=== PATIENT | female | born 1975 | race Caucasian/White ===

== ENCOUNTER → 2016-12-13 | Outpatient (CLI) | payer BC ==
[~2016-12-13] MED LIST: B-CO1CAP17 PO; IBUP600T44 PO; LISI-789 PO; LORA10TA5 PO; MULT-506 PO; PRAV40TA PO; PRENTAB69 PO; SNQ/25 PO; VITACAP26 PO
--- NOTE | 2016-12-14 13:33 | MAMMOGRAPHY REPORT ---
BILATERAL DIGITAL SCREENING MAMMOGRAM TOMOSYNTHESIS WITH CAD: 12/13/2016 CLINICAL HISTORY: Routine screening. Patient has no complaints. TECHNIQUE: Breast tomosynthesis in addition to standard 2D mammography was performed. Current study was also evaluated with a Computer Aided Detection (CAD) system. COMPARISON: Comparison is made to exams dated: 12/13/2015 mammogram, 11/23/2014 mammogram, 11/13/2014 m ammogram, 11/30/2014 ultrasound biopsy, 11/23/2014 ultrasound, and 11/30/2014 mammogram - [facility]. BREAST COMPOSITION: The tissue of both breasts is heterogeneously dense, which may obscure small ma sses. FINDINGS: A square shaped mole marker overlies the upper outer quadrant of the left breast. Groupin gs of round and punctate microcalcifications in the anterior left breast are stable in number and co nfiguration dating back to 11/13/2014, most likely benign fibrocystic change. There are other scatte red punctate microcalcifications throughout the remainder of each breast. There is a stable ribbon shaped metallic biopsy marker in the 12:30 posterior right breast, at the site of prior benign biops y. The nodular asymmetry seen on the CC view adjacent to the biopsy marker is less prominent compar ing to the 2016 mammogram, and 06/10/2015 mammogram. No new suspicious mass, architectural distorti on or cluster of microcalcifications is seen bilaterally. IMPRESSION: ACR BI-RADS CATEGORY 1: NEGATIVE Stable bilateral mammograms, without mammographic evidence of malignancy. A 1 year screening mammogr am is recommended. The patient will receive written notification of the results. Approximately 10% of breast cancers are not detected with mammography. A negative mammographic repor t should not delay biopsy if a clinically suggestive mass is present. Paula Resendiz M.D. ay/:12/13/2016 17:26:37 Repair Clerk: Nancy ISAAC(R)(M), [facility] letter sent: Normal 1/2 BI-RADS Code: ACR BI-RADS Category 1: Negative
== END | disposition home or self-care (01) ==
LOC: C.MAMM 10:36
PROVIDERS: ATTEND Obstetrics & Gynecology
DX: Z12.31 Encounter for screening mammogram for malignant neoplasm of breast (principal)

== ENCOUNTER 2017-02-14 14:44 | Emergency (ER) | payer BC ==
[~2017-02-14] VITALS: Ht 165.1 cm; Wt 69.0 kg
[~2017-02-14 14:44] MED LIST changes: -B-CO1CAP17 PO; -LISI-789 PO; -MULT-506 PO; -PRAV40TA PO; -SNQ/25 PO; -VITACAP26 PO
[2017-02-14 14:50] VITALS: TEMP 36.7; Ht 165.1 cm; Wt 69.0 kg
[2017-02-14] MEDS ORDERED: SODIUM CHLORIDE 0.9% 1000ML 1,000 ML IV STA (15:16)
[2017-02-14] MEDS ORDERED: KETOROLAC TROMETHAMINE 30 MG/ML VIAL IV STA (15:16)
[2017-02-14] MEDS ORDERED: ONDANSETRON INJ 2 MG/ML 2 ML VIAL IV STA (15:16)
[2017-02-14 15:27] LABS: BASO % 0.2 %; BASO ABS # 0.02 K/uL (0-0.2); COMPLETE YES; HEMATOCRIT 39.5 % (37-47); IG% 0.2 %; LYMPH % 20.6 %; LYMPH ABS # 1.86 K/uL (1.2-3.4); MEAN CELL VOLUME 89.6 fL (80-100); MEAN CORPUSCULAR HEMOGLOBIN 31.1 pg (25-34); MEAN CORPUSCULAR HGB CONC 34.7 g/dl (32-36); MONO % 7.3 %; NEUT % 70.7 %; PLATELET COUNT 227 K/uL (130-400); RED BLOOD COUNT 4.41 M/uL (4.2-5.4); WHITE BLOOD COUNT 9.04 K/uL (4.8-10.8)
[2017-02-14 15:31] LABS: URINE APPEARANCE CLEAR (CLEAR); URINE BILIRUBIN NEG (NEG); URINE COLOR DK YELLOW; URINE EPITHELIAL CELL AUTO 20-30 /lpf (0-5); URINE NITRITE NEG (NEG); URINE SPECIFIC GRAVITY 1.025 (1.000-1.030); UROBILINOGEN NEG (NEG)
[2017-02-14] MEDS ORDERED: PRAV40TA PO (15:35)
[2017-02-14] MEDS ORDERED: SNQ/25 PO (15:35)
[2017-02-14] MEDS ORDERED: B-CO1CAP17 PO (15:35)
[2017-02-14] MEDS ORDERED: VITACAP26 PO (15:35)
[2017-02-14] MEDS ORDERED: MULT-506 PO (15:35)
[2017-02-14] MEDS ORDERED: LISI-789 PO (15:35)
[2017-02-14 15:36] LABS: MANUAL MICROSCOPIC REQUIRED? NO; REVIEW REQ? YES
[2017-02-14 15:38] LABS: ALT/SGPT 45 U/L (12-78); AST/SGOT 27 U/L (15-37); BLOOD UREA NITROGEN 14 mg/dl (7-18); CARBON DIOXIDE 29 mmol/L (21-32); CHLORIDE 103 mmol/L (98-107); GLUCOSE 113 mg/dl (70-99); POTASSIUM 3.6 mmol/L (3.5-5.1); SODIUM 139 mmol/L (136-145)
[2017-02-14 15:41] LABS: ALKALINE PHOSPHATASE 62 U/L (45-117)
[2017-02-14 15:49] LABS: ZZUR CULT IF INDIC CLEAN CATCH YES
--- NOTE | 2017-02-14 15:52 | DIAGNOSTIC IMAGING REPORT ---
CT SCAN OF THE ABDOMEN AND PELVIS WITHOUT IV CONTRAST CLINICAL HISTORY: Right flank pain. COMPARISON STUDY: No priors. TECHNIQUE: CT scan of the abdomen and pelvis is performed from the lung bases to the proximal femora. Images are reviewed in the axial, sagittal, and coronal planes. IV contrast was not administered for this examination as per the referring clinician. Automated dose control exposure was utilized. CT DOSE: 841.45 mGy.cm FINDINGS: Lung bases: The heart is normal in size and without pericardial effusion. The lung bases are clear. Liver: The unenhanced liver is enlarged, measuring 19 cm in length. The liver is normal in contour and attenuation. There is no intrahepatic biliary ductal dilatation. Gallbladder: There are small calcified gallstones. There is no CT evidence of acute cholecystitis. Spleen: Normal in size and attenuation. Pancreas: Unremarkable. Adrenal glands: Unremarkable. Kidneys: The unenhanced kidneys are normal in size. There is mild fullness of the right renal collecting system. No hydronephrosis is seen. There are least 2 small nonobstructing calculi present in both kidneys measuring up to 2 mm. No ureteral stone is clearly seen. There is no evidence of contour deforming renal mass lesion. Abdominal vasculature: The abdominal aorta is normal in course and caliber. Bowel: The small bowel and colon are normal in course and caliber. There are scattered colonic diverticula without CT evidence of acute diverticulitis. Fecal retention is noted in the right colon. The appendix is well-visualized and normal. Peritoneum: There is no intraperitoneal free air or abdominal ascites. There is a small fat-containing umbilical hernia. A naval piercing is noted. Lymphadenopathy: None. Pelvic viscera: The bladder is largely decompressed and grossly unremarkable. The uterus is normal in appearance noting an intrauterine device in place. There are small bilateral ovarian follicles. Small calcification in the pelvis likely represent phleboliths. Skeletal structures: No lytic or blastic lesions are seen. Sclerotic change is noted in the sacroiliac joints. IMPRESSION: 1. There are tiny bilateral nonobstructing renal calculi. 2. There is minimal fullness of the right renal collecting system without evidence of hydronephrosis. No obstructing ureteral stone is clearly identified. This may represent the sequelae of a recently passed kidney stone, or could also be seen in the setting of ascending urinary tract infection. Correlation with clinical findings and urinalysis will be required. 3. Mild hepatomegaly. 4. Cholelithiasis. 5. There is fecal retention noted in the right colon. Electronically signed by: Sukhdeep Leigh M.D. 02/14/2017 3:50 PM Dictated Date/Time: 02/14/2017 3:42 PM
[2017-02-14 17:08] VITALS: BP 115/79; PULSE 63; O2SAT 100
--- NOTE | 2017-02-14 22:27 | EMERGENCY ROOM VISIT NOTE ---
History Report prepared by Kiko: Beverly Brown Under the Supervision of: Dr. Steven Yanez D.O. First contact with patient: 14:52 Chief Complaint: BACK PAIN Stated Complaint: BACK PAIN, NAUSEA, HX OF KIDNEY STONES History of Present Illness The patient is a 41 year old female who presents to the Emergency Room with complaints of constant right sided back pain beginning 5 hours ago. The patient states that she has a history of kidney stones and is concerned that she has one today. She complains of nausea and notes that her symptoms today are similar to her previous kidney stones. She denies any urinary symptoms, abdominal pain, numbness in the legs, weakness in the legs, cough, runny nose, changes in bowel movements, and sore throat. The patient states that her pain is not worsened with movement or breathing. She has no chest pain. Source of History: patient Onset: 5 hours ago Position: back Timing: constant Modifying Factors (Worsening): other (none) Associated Symptoms: + nausea, No abdominal pain, No cough, No numbness, No sorethroat, No urinary symptoms, No weakness Note: She denies any runny nose and changes in bowel movements. Review of Systems See HPI for pertinent positives & negatives. A total of 10 systems reviewed and were otherwise negative. Past Medical & Surgical Medical Problems: (1) Depression (2) Kidney stone Family History Diabetes mellitus FH: heart disease Hypertension Social History Smoking Status: Never Smoker Smokeless Tobacco Use: No Alcohol Use: occasionally Marital Status: in relationship Housing Status: lives with family Occupation Status: employed Current/Historical Medications Scheduled Doxepin (Sinequan), 25 MG PO QPM Lisinopril (Zestril), 2.5 MG PO DAILY Multivitamin (Multivitamin), 1 TAB PO DAILY Pravastatin Sodium (Pravachol), 40 MG PO QPM Vitamin B Cmplx/Vitc/Folic Ac (Nephrocaps), 1 CAP PO DAILY Vitamins C & E (Vitamin C), 1 TAB PO DAILY Allergies Coded Allergies: Doxycycline (Verified Allergy, Unknown, HIVES, 05/13/12) Physical Exam Vital Signs Date Time Temp Pulse Resp B/P Pulse Ox O2 Delivery O2 Flow Rate FiO2 02/14/17 17:08 63 18 115/79 100 02/14/17 15:44 70 16 126/73 97 Room Air 02/14/17 14:50 36.7 98 18 141/80 99 Room Air Physical Exam GENERAL: sitting up in bed, holding right flank, disheveled, alert, well nourished, no distress, non-toxic EYE EXAM: normal conjunctiva OROPHARYNX: no exudate, no erythema, lips, buccal mucosa, and tongue normal and mucous membranes are moist NECK: supple, no nuchal rigidity, no adenopathy, non-tender LUNGS: Clear to auscultation. Normal chest wall mechanics HEART: no murmurs, S1 normal and S2 normal ABDOMEN: abdomen soft, non-tender, normo-active bowel sounds, no masses, no rebound or guarding. BACK: Back is symmetrical on inspection and there is no deformity, no midline tenderness, no CVA tenderness. SKIN: no rashes and no bruising UPPER EXTREMITIES: upper extremities are grossly normal. LOWER EXTREMITIES: No pitting edema. Flexion extension of knee, hip, ankle and EHL 5/5, gross sensation intact, able to ambulate without difficulty. NEURO EXAM: Normal sensorium, cranial nerves are grossly intact 2 through 12. No gross weakness of arms, no gross weakness of legs. Medical Decision & Procedures ER Provider Diagnostic Interpretation: Radiology results as stated below per my review and the radiologist's interpretation: CT SCAN OF THE ABDOMEN AND PELVIS WITHOUT IV CONTRAST FINDINGS: Lung bases: The heart is normal in size and without pericardial effusion. The lung bases are clear. Liver: The unenhanced liver is enlarged, measuring 19 cm in length. The liver is normal in contour and attenuation. There is no intrahepatic biliary ductal dilatation. Gallbladder: There are small calcified gallstones. There is no CT evidence of acute cholecystitis. Spleen: Normal in size and attenuation. Pancreas: Unremarkable. Adrenal glands: Unremarkable. Kidneys: The unenhanced kidneys are normal in size. There is mild fullness of the right renal collecting system. No hydronephrosis is seen. There are least 2 small nonobstructing calculi present in both kidneys measuring up to 2 mm. No ureteral stone is clearly seen. There is no evidence of contour deforming renal mass lesion. Abdominal vasculature: The abdominal aorta is normal in course and caliber. Bowel: The small bowel and colon are normal in course and caliber. There are scattered colonic diverticula without CT evidence of acute diverticulitis. Fecal retention is noted in the right colon. The appendix is well-visualized and normal. Peritoneum: There is no intraperitoneal free air or abdominal ascites. There is a small fat-containing umbilical hernia. A naval piercing is noted. Lymphadenopathy: None. Pelvic viscera: The bladder is largely decompressed and grossly unremarkable. The uterus is normal in appearance noting an intrauterine device in place. There are small bilateral ovarian follicles. Small calcification in the pelvis likely represent phleboliths. Skeletal structures: No lytic or blastic lesions are seen. Sclerotic change is noted in the sacroiliac joints. IMPRESSION: 1. There are tiny bilateral nonobstructing renal calculi. 2. There is minimal fullness of the right renal collecting system without evidence of hydronephrosis. No obstructing ureteral stone is clearly identified. This may represent the sequelae of a recently passed kidney stone, or could also be seen in the setting of ascending urinary tract infection. Correlation with clinical findings and urinalysis will be required. 3. Mild hepatomegaly. 4. Cholelithiasis. 5. There is fecal retention noted in the right colon. Electronically signed by: Sukhdeep Leigh M.D. 02/14/2017 3:50 PM Dictated Date/Time: 02/14/2017 3:42 PM Laboratory Results 02/14/17 14:55 Red Blood Count 4.41, Mean Corpuscular Volume 89.6, Mean Corpuscular Hemoglobin 31.1, Mean Corpuscular Hemoglobin Concent 34.7, Mean Platelet Volume 9.0, Neutrophils (%) (Auto) 70.7, Lymphocytes (%) (Auto) 20.6, Monocytes (%) (Auto) 7.3, Eosinophils (%) (Auto) 1.0, Basophils (%) (Auto) 0.2, Neutrophils # (Auto) 6.39, Lymphocytes # (Auto) 1.86, Monocytes # (Auto) 0.66, Eosinophils # (Auto) 0.09, Basophils # (Auto) 0.02 02/14/17 14:55 Test 02/14/17 14:55 02/14/17 15:20 White Blood Count 9.04 K/uL (4.8-10.8) Red Blood Count 4.41 M/uL (4.2-5.4) Hemoglobin 13.7 g/dL (12.0-16.0) Hematocrit 39.5 % (37-47) Mean Corpuscular Volume 89.6 fL (80-100) Mean Corpuscular Hemoglobin 31.1 pg (25-34) Mean Corpuscular Hemoglobin Concent 34.7 g/dl (32-36) Platelet Count 227 K/uL (130-400) Mean Platelet Volume 9.0 fL (7.4-10.4) Neutrophils (%) (Auto) 70.7 % Lymphocytes (%) (Auto) 20.6 % Monocytes (%) (Auto) 7.3 % Eosinophils (%) (Auto) 1.0 % Basophils (%) (Auto) 0.2 % Neutrophils # (Auto) 6.39 K/uL (1.4-6.5) Lymphocytes # (Auto) 1.86 K/uL (1.2-3.4) Monocytes # (Auto) 0.66 K/uL (0.11-0.59) Eosinophils # (Auto) 0.09 K/uL (0-0.5) Basophils # (Auto) 0.02 K/uL (0-0.2) RDW Standard Deviation 42.2 fL (36.4-46.3) RDW Coefficient of Variation 12.9 % (11.5-14.5) Immature Granulocyte % (Auto) 0.2 % Immature Granulocyte # (Auto) 0.02 K/uL (0.00-0.02) Anion Gap 7.0 mmol/L (3-11) Est Creatinine Clear Calc Drug Dose 89.4 ml/min Estimated GFR () 105.4 Estimated GFR (Non- 90.9 BUN/Creatinine Ratio 18.0 (10-20) Calcium Level 9.0 mg/dl (8.5-10.1) Total Bilirubin 0.4 mg/dl (0.2-1) Direct Bilirubin < 0.1 mg/dl (0-0.2) Aspartate Amino Transf (AST/SGOT) 27 U/L (15-37) Alanine Aminotransferase (ALT/SGPT) 45 U/L (12-78) Alkaline Phosphatase 62 U/L (45-117) Total Protein 7.8 gm/dl (6.4-8.2) Albumin 4.5 gm/dl (3.4-5.0) Lipase 154 U/L (73-393) Urine Color DK YELLOW Urine Appearance CLEAR (CLEAR) Urine pH 6.0 (4.5-7.5) Urine Specific [place] 1.025 (1.000-1.030) Urine Protein NEG (NEG) Urine Glucose (UA) NEG (NEG) Urine Ketones NEG (NEG) Urine Occult Blood NEG (NEG) Urine Nitrite NEG (NEG) Urine Bilirubin NEG (NEG) Urine Urobilinogen NEG (NEG) Urine Leukocyte Esterase NEG (NEG) Urine WBC (Auto) 1-5 /hpf (0-5) Urine RBC (Auto) 0-4 /hpf (0-4) Urine Hyaline Casts (Auto) 1-5 /lpf (0-5) Urine Epithelial Cells (Auto) 20-30 /lpf (0-5) Urine Bacteria (Auto) 1+ (NEG) Urine Test NEG (NEG) Laboratory results per my review. Medications Administered Medications (Trade) Dose Ordered Sig/Tierney Route Start Time Stop Time Status Last Admin Dose Admin Sodium Chloride (Nss 1000ml) 1,000 ml @ 999 mls/hr Q1H1M STAT IV 02/14/17 15:16 02/14/17 16:16 DC 02/14/17 15:27 999 MLS/HR Ketorolac Tromethamine (Toradol Inj) 30 mg NOW STAT IV 02/14/17 15:16 02/14/17 15:17 DC 02/14/17 15:27 30 MG Ondansetron HCl (Zofran Inj) 4 mg NOW STAT IV 02/14/17 15:16 02/14/17 15:18 DC 02/14/17 15:27 4 MG ED Course ED COURSE: Vital signs were reviewed and showed hypertension The patients medical record was reviewed The above diagnostic studies were performed and reviewed. ED treatments and interventions as stated above. 1452: The patient was evaluated in room C11B. A complete history and physical examination was performed. 1516: Zofran Inj 4mg IV, Toradol Inj 30mg IV, Sodium Chloride 1000 ml @ 999 mls/ hr IV. 1650: I updated the patient. She does not want a D-Dimer or a chest x-ray. She understands the risks and benefits. 1659: Upon reevaluation, the patient is doing well.I discussed my findings with the patient and she understands and agrees with the treatment plan. Based on the patients age, coexisting illnesses, exam and lab findings the decision to treat as an outpatient was made. The patient remained stable while under my care. The patient appeared well at the time of discharge. Medical Decision Differential diagnoses includes but is not limited to lumbar radiculopathy, muscle strain, facture, cauda equina, mass, and disc herniation. Medication Reconciliation: I attest that I have personally reviewed the patient' s current medication list. Patient is a 41-year-old female who presents the ER for right sided back pain. No chest pain or shortness of breath. She notes this feels exactly are 2 previous kidney stones. She does have nausea associated with it. 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 CBC along with BMP, LFTs and lipase was unremarkable. UA was unremarkable. was negative. CT showed fullness of the right collecting system but no stone. I do question whether she recently passed a stone. UA shows no infection but rather contamination. She has no urinary symptoms. Recommend a d-dimer and chest x-ray the patient declined as she notes she does not have any PE or pneumonia. She preferred to leave as she was feeling better and was discharged follow with her primary care doctor. Discussed with Pt concerning signs and symptoms to watch out for. Pt was instructed to follow up with their PCP and discussed with the patient their option to return to the ED at anytime for persistent or worsening symptoms. The appropriate anticipatory guidance and out-patient management, including indications for return to the emergency department, were explained at length to the patient and understood. Impression Primary Impression: Back pain Additional Impression: Hydronephrosis Scribe Attestation The scribe's documentation has been prepared under my direction and personally reviewed by me in its entirety. I confirm that the note above accurately reflects all work, treatment, procedures, and medical decision making performed by me. Departure Information Dispostion Home / Self-Care Referrals Jeovany Patel M.D. (PCP) Forms HOME CARE DOCUMENTATION FORM, IMPORTANT VISIT INFORMATION Patient Instructions Back Pain - [facility], [facility] Additional Instructions Please follow up with your primary care doctor with in the next 24 hours. Any worsening of your symptoms, please return to the ED immediately. This includes fevers grade and 100.4, worsening pain, short his breath, chest pain, or any other concerning signs or symptoms from your standpoint. Please take Motrin or Tylenol as needed for pain. Please follow up with your primary care doctor in regards to the increased swelling within your renal collecting system on the right. Problem Qualifiers Primary Impression: Back pain Back pain location: low back pain Chronicity: acute Back pain laterality: right Sciatica presence: unspecified whether sciatica present Qualified Codes : M54.5 - Low back pain Additional Impression: Hydronephrosis Hydronephrosis type: unspecified Qualified Codes: N13.30 - Unspecified hydronephrosis
== END 2017-02-14 17:09 | disposition home or self-care (01) ==
LOC: C.EDB 14:46 → C.EDC 17:09
DX: M54.5 Low back pain (principal); N13.30 Unspecified hydronephrosis; Z87.442 Personal history of urinary calculi; F32.9 Major depressive disorder, single episode, unspecified; Z83.3 Family history of diabetes mellitus; Z82.49 Family history of ischemic heart disease and other diseases of the circulatory system; Z79.899 Other long term (current) drug therapy

== ENCOUNTER → 2017-12-18 | Outpatient (CLI) | payer OTHER ==
[~2017-12-18] MED LIST changes: +B-CO1CAP17 PO; -IBUP600T44 PO; +LISI-789 PO; -LORA10TA5 PO; +MULT-506 PO; +PRAV40TA PO; -PRENTAB69 PO; +SNQ/25 PO; +VITACAP26 PO
--- NOTE | 2017-12-19 07:55 | MAMMOGRAPHY REPORT ---
BILATERAL DIGITAL SCREENING MAMMOGRAM TOMOSYNTHESIS WITH CAD: 12/18/2017 CLINICAL HISTORY: Routine screening. TECHNIQUE: Breast tomosynthesis in addition to standard 2D mammography was performed. Current study was also evaluated with a Computer Aided Detection (CAD) system. COMPARISON: Comparison is made to exams dated: 12/13/2016 mammogram, 12/13/2015 mammogram, 11/23/2014 ma mmogram, 11/13/2014 mammogram, 11/30/2014 mammogram, and 06/10/2015 mammogram - [facility]ter. BREAST COMPOSITION: The tissue of both breasts is heterogeneously dense, which may obscure small mas ses. FINDINGS: There is a stable ribbon-shaped biopsy marker clip in the 12:00 posterior/retroareolar righ t breast, and stable adjacent focal asymmetry. Stable loose groupings of punctate monomorphic microc alcifications in the anterior left breast. No suspicious mass, architectural distortion or cluster o f suspicious microcalcifications is seen. IMPRESSION: ACR BI-RADS CATEGORY 1: NEGATIVE There is no mammographic evidence of malignancy. A 1 year screening mammogram is recommended. The pa tient will receive written notification of the results. Approximately 10% of breast cancers are not detected with mammography. A negative mammographic report should not delay biopsy if a clinically suggestive mass is present. Paula Resendiz M.D. ay/:12/18/2017 16:49:52 Analysis Or Research Safety Inspector: Howard FARMER)(Anyi), [facility] letter sent: Normal 1/2 BI-RADS Code: ACR BI-RADS Category 1: Negative
== END | disposition home or self-care (01) ==
LOC: C.MAMM 08:29
PROVIDERS: ATTEND Family Medicine
DX: Z12.31 Encounter for screening mammogram for malignant neoplasm of breast (principal)

== ENCOUNTER → 2018-02-01 | Outpatient (CLI) | payer OTHER | END | disposition home or self-care (01) | LOC: C.PAPS 13:47 | PROVIDERS: ATTEND Obstetrics & Gynecology | DX: Z12.4 Encounter for screening for malignant neoplasm of cervix (principal) ==